=== PATIENT | male | born 1980 | race Caucasian/White ===

== ENCOUNTER 2016-11-15 11:54 | Emergency (ER) | payer OTHER ==
[~2016-11-15] VITALS: Ht 185.4 cm; Wt 74.8 kg
== END 2016-11-15 12:56 | disposition home or self-care (01) ==
LOC: CFTX 11:54 → CED 11:54 → CFTX 12:39
DX: L03.114 Cellulitis of left upper limb (principal); F17.210 Nicotine dependence, cigarettes, uncomplicated
CPT/HCPCS: 99283